=== PATIENT | male | born 1990 | race African-American/Black ===

== ENCOUNTER 2024-05-08 06:55 | Emergency (ER) | payer OTHER, SELFPAY ==
[2024-05-08 06:57] VITALS: BP 148/77
[2024-05-08 07:30] VITALS: BMI 28.9
--- NOTE | 2024-05-08 07:34 | ED.SKININJ ---
HPI-Injury
General
Chief Complaint: Eye Problems
Source: patient
Exam Limitations: none
Time Seen by Provider: 05/08/24 07:29
Nursing documentation reviewed up to this point in time: agreed with
History of Present Illness-Injury
Initial Injury comments:
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 His symptoms persist today. He wears glasses, no contact lens wearing. Denies change in vision, n/v. Denies
headache.
Past History
Past History
ED Past Medical History: None
ED Past Surgical History: Other (Gastric banding surgery)
Social History
Tobacco: Non-smoker
Personal: Single
Living: with family
Employment: Other (College Student)
Review of Systems
Review of Systems
Allergies reviewed?: Yes
All Other Systems: ROS reviewed and negative except as documented in HPI and ROS
Constitutional: Denies fever
EENT: Reports other (FB sensation right eye, tearing.)
ABD/GI: Denies nausea or vomiting
Skin: Reports no symptoms
Neurological: Denies headache
Phy Exam
Physical Exam
Physical Exam:
PHYSICAL EXAMINATION:
General: no apparent distress, not acutely ill
Neuro: alert and oriented.
Psychiatric: well kept. interactive and cooperative
Musculoskeletal: Moves with ease
Skin: Warm, pink.
Eye Exam
Eye Exam: PERRL, EOMI, conjunctiva normal, globe normal, visual acuity normal and other (tearing both eyes, worse on right)
Able to obtain acuity?: Yes
Right 20/: 20
Left 20/: 20
Both 20/: 16
Refraction?: Yes
Eyelid Exam: foreign body: Right (tiny black spec)
Course
Orders/Labs/Results
Orders:
Orders
05/08/24 07:30
Visual Acuity- Treatment ONCE
05/08/24 07:36
Fluorescein Sodium [Ful-Mikki] 1 mg .ROUTE .STK-MED ONE
Tetracaine HCl [Tetracaine 0.5% Ophthalmic Solution] 1 drop .ROUTE .STK-MED ONE
05/08/24 08:06
Ciprofloxacin HCl [Ciloxan 0.3% Ophthalmic Solution] 1 drop RIGHT EYE NOW STA
Vital Signs
Initial and Last Documented VS:
Initial Vital Signs
Temp Pulse Resp BP Pulse Ox
98.2 F 75 16 148/77 99
05/08/24 06:57 05/08/24 06:57 05/08/24 06:57 05/08/24 06:57 05/08/24 06:57
Last Documented Vital Signs
Temp Pulse Resp BP Pulse Ox
98.2 F 75 16 148/77 99
05/08/24 06:57 05/08/24 06:57 05/08/24 06:57 05/08/24 06:57 05/08/24 06:57
MDM/Problems Addressed
Differential Diagnosis Includes:
FB eye, corneal abrasion.
MDM/Problems Addressed:
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 His symptoms persist today. He wears glasses, no contact lens wearing. Denies change in vision, n/v. Denies
headache. Tiny black spec noted under right eyelid laterally
Visual acuity normal
FB Easily removed with sterile q tip and pt states instant relief, no significant abrasion noted with fluorescein stain
Provided with Cipro eye drops
He has eye doctor if needed
*Critical Care Note
Total Time (30-74mins, 75-104mins- exclusive of procedures): Not Applicable
ED Attending Note
-
Portions of this chart may have been created with voice recognition software.� Occasional wrong word or��sound alike� substitutions may have occurred due to the inherent limitations of voice recognition software.
Discharge Plan
Departure
Patient Disposition: Home (Routine Discharge)
Date of Disposition: 05/08/24
Time of Disposition: 07:56
Patient with high blood pressure during this ER visit?: No
Condition: Good
Discharge Problem:
Acute foreign body of right eyelid
Instructions: Corneal Abrasion (DC), How to Use Eye Drops, Foreign Body in Eye (DC)
Prescriptions:
No Action
doxycycline hyclate 100 MG capsule
100 mg PO Q12 Qty: 14 0RF
Referrals:
Oswald Ray MD [Active] - Follow up in 2-3 days
UNKNOWN - PT DOES,NOT KNOW [Family Provider] -
Activity Restrictions/Additional Instructions:
As we discussed, I do not see any significant abrasion.
Use the Ciloxan as follows: 1-2 drops right eye every 4 hours while awake for 5 days.
See the eye doctor in 2-3 days for recheck.
Tylenol or Ibuprofen as needed for discomfort.
Cool compress for 15 minutes off and on may help soothe the eye
Interventions
Interventions:
*Risk Screen - Suicide Last Done: 05/08/24 06:57
*General Assessment Last Done: 05/08/24 06:57
*Neglect/Abuse Screening Last Done: 05/08/24 06:57
ED- Fall Risk Assessment Last Done: 05/08/24 08:45
*ED COVID-19 Vaccine History Last Done: 05/08/24 07:30
*Nursing Disposition Last Done: 05/08/24 08:45
Discharge Date and Time
Discharge Date/Time: 05/08/24 08:46
Print Language: BANGLADESHI
[2024-05-08] MEDS: CILOXAN 0.3% OPHTHALMIC SOLUTION 1 DROP RIGHT EYE (08:48)
== END 2024-05-08 08:46 | disposition home or self-care (01) ==
LOC: EMR 06:55
PROVIDERS: EMERGENCY PHYSICIAN Student in an Organized Health Care Education/Training Program
DX: T15.91XA Foreign body on external eye, part unspecified, right eye, initial encounter (principal); X58.XXXA Exposure to other specified factors, initial encounter
CPT/HCPCS: 99283

== ENCOUNTER → 2025-01-30 14:09 | Outpatient (REF) | payer OTHER, SELFPAY | LOC: HWRAD 14:09 | PROVIDERS: ATTENDING PHYSICIAN Family Medicine | DX: M54.2 Cervicalgia (principal) | CPT/HCPCS: 72052 ==